=== PATIENT | female | born 1965 | race American Indian/Alaskan Native ===

== ENCOUNTER 2016-08-16 19:47 | Emergency (ER) | payer OTHER ==
[2016-08-16 19:48] VITALS: BP 194/86; PULSE 67; RESP 16; TEMP 98.2; O2SAT 100
--- NOTE | 2016-08-16 20:10 | PD ---
Physical Exam Time Seen by Provider: 20:08 Narrative 51 y/o female here with chest pain for one week. She reports she was Cutting a tree and she felt a "crack." Vital signs reviewed. Seen at triage desk. Awaiting bed placement. Data Data Last Documented VS Vital Signs Date Time Temp Pulse Resp B/P Pulse Ox O2 Delivery O2 Flow Rate FiO2 08/16/16 19:48 98.2 67 16 194/86 100 Room Air [facility] Medical Record Reviewed: Yes Supervised Visit with MACARIO: Joshua Piedra August 16, 2016 20:10
--- NOTE | 2016-08-16 20:21 | PD ---
HPI Chief Complaint: Musculoskeletal Complaint Time Seen by Provider: 20:18 Travel History International Travel<30 days: No Contact w/Intl Traveler<30days: No Traveled to known affect area: No History of Present Illness HPI 51-year-old female presents emergency Department with complaints of right anterior chest wall pain. She states that one week ago she was pulling branches after cutting down a tree. She states that one of the branches had gotten caught and she pulled it vigorously. She felt something crack or pop in her right chest just lateral to the sternum at the level of her breasts. Since then she's had pain. She's taken Tylenol without relief. She states the pain is mild to moderate. Worse with movement and palpation. Some pain with deep breath or cough. No shortness of breath or wheezing. No fever chills. No nausea vomiting. No abdominal pain. No urinary symptoms. PFSH Past Medical History Narrative Medical Guillain-Sifuentes, arthritis Tetanus Vaccination: < 5 Years ?: Not Past Surgical History Narrative Surgical 2, hysterectomy Social History Alcohol Use: No Tobacco Use: No Substance Use: No Allergies-Medications (Allergen,Severity, Reaction): Coded Allergies: Nonsteroidal Anti-Inflammatory Agts (Verified Allergy, Severe, Swelling, ) Reported Meds & Prescriptions Reported Meds & Active Scripts Active Ultram (Tramadol HCl) 50 Mg Tab 50-100 Mg PO Q6H PRN Robaxin (Methocarbamol) 750 Mg Tab 1,500 Mg PO TID 10 Days Review of Systems Except as stated in HPI: all other systems reviewed are Neg Physical Exam Narrative GENERAL: Well-developed, well-nourished in no apparent distress. Nontoxic appearing. HEAD: Normocephalic, atraumatic. EYES: Pupils equal round and reactive. Extraocular motions intact. No scleral icterus. No injection or drainage. ENT: Nose clear. Throat without erythema, tonsillar hypertrophy or exudate. Uvula midline. Airway patent. NECK: Trachea midline. Supple, nontender, moves head freely. No central bony tenderness or spasm. CARDIOVASCULAR: Regular rate and rhythm without murmurs, gallops, or rubs. CHEST: Tender right lateral sternal region at the level of the fourth and fifth ribs without deformity or crepitance. No retractions or use of accessory muscles. RESPIRATORY: Clear to auscultation. Breath sounds equal bilaterally. No wheezes , rales, or rhonchi. GASTROINTESTINAL: Abdomen soft, non-tender, nondistended. No hepato-splenomegaly , or palpable masses. No guarding. EXTREMITIES: No clubbing, cyanosis, or edema. No joint tenderness. BACK: Nontender without deformity. No flank tenderness. NEUROLOGICAL: Awake, alert and oriented x 3 .Cranial nerves grossly intact. Motor and sensory grossly within normal limits. Normal speech. Data Data Last Documented VS Vital Signs Date Time Temp Pulse Resp B/P Pulse Ox O2 Delivery O2 Flow Rate FiO2 08/16/16 19:48 98.2 67 16 194/86 100 Room Air Orders Ribs, Uni (W/Exp Cxr-Min 3vw) (08/16/16 20:16) [facility] Medical Decision Making Medical Screen Exam Complete: Yes Emergency Medical Condition: Yes Medical Record Reviewed: Yes Interpretation(s) Right RIBS: Negative for acute fracture. Differential Diagnosis MDM: High Differential diagnoses: Fracture, sprain, strain, dislocation, contusion, neurovascular injury Narrative Course X-ray is negative for fracture. This is a occult rib fracture Diagnosis Primary Impression: occult rib fracture Patient Instructions: General Instructions Additional Instructions: Rest. Ice for the next 3 days followed by heat . Robaxin and Ultram. Deep breaths every half hour.. Follow-up with a primary care doctor in one week. Return to the ER for emergencies. Med/Other Pt SpecificInfo: Prescription(s) given Scripts Tramadol (Ultram)50 Mg [id number] Mg PO Q6H PRN (PAIN) #30 TAB Prov:Tom Bates MD 08/16/16 Methocarbamol (Robaxin)750 Mg Tab1,500 Mg PO TID 10 Days Prov:Tom Bates MD 08/16/16 Disposition: 01 DISCHARGE HOME Condition: Stable Emigdio Gomes August 16, 2016 20:21
[2016-08-16] MEDS ORDERED: ULTR50TA5 PO (20:22)
[2016-08-16] MEDS ORDERED: ROBA750T PO (20:22)
--- NOTE | 2016-08-16 21:19 | RADRPT ---
EXAM DATE/TIME: 08/16/2016 20:48 [facility] COMPARISON: No previous studies available for comparison. INDICATIONS : Right rib pain after pulling tree branches a week ago. MEDICAL HISTORY : Hypertension. SURGICAL HISTORY : None. ENCOUNTER: Initial ACUITY: 1 week PAIN SCORE: 8/10 LOCATION: Right midline and right chest. FINDINGS: Multiple views of the right ribs were performed. There is no evidence of displaced fracture. No nikos tructive lesions or areas of periosteal thickening are seen. Expiratory view of the chest is negativ e for pneumothorax. The mediastinal structures are midline. There is a levocurvature of the upper t horacic spine and a dextrocurvature of the thoracolumbar region. CONCLUSION: No acute disease. Lowell Obrien MD on August 16, 2016 at 21:16 Board Certified Radiologist. This report was verified electronically.
== END 2016-08-16 21:28 | disposition home or self-care (01) ==
LOC: NEPK 19:47
DX: S22.31XA Fracture of one rib, right side, initial encounter for closed fracture (principal); W22.8XXA Striking against or struck by other objects, initial encounter; Y93.H9 Activity, other involving exterior property and land maintenance, building and construction
CPT/HCPCS: 71101; 99283

== ENCOUNTER 2017-03-26 13:29 | Emergency (ER) | payer OTHER ==
[~2017-03-26] VITALS: Ht 170.2 cm; Wt 75.0 kg
[~2017-03-26 13:29] MED LIST: ROBA750T PO; TRAM50 PO
[2017-03-26 13:36] VITALS: BP 189/94; PULSE 84; RESP 18; TEMP 98.7; O2SAT 98
[2017-03-26] MEDS ORDERED: SODIUM CHLOR 0.9% 1000 ML INJ 1,000 ML IV SCH (13:41)
[2017-03-26 13:42] VITALS: BP 210/96; PULSE 79; RESP 18; O2SAT 97
--- NOTE | 2017-03-26 13:43 | PD ---
HPI Chief Complaint: Neuro Symptoms/ Deficits Time Seen by Provider: 13:40 Travel History International Travel<30 days: No Contact w/Intl Traveler<30days: No Traveled to known affect area: No History of Present Illness HPI 52-year-old female with remote history of Guillian-[place] presents to the emergency department for altered mental status. Patient is reported as nonresponsive and emergently placed in a room. Patient has her eyes open and she has tracking. She is not following commands moving her extremities. Her tells me that she was acting normal up until she read a letter from her youngest son that stated he was running away with his girlfriend. He states at that time she collapsed and she has been like this since. He states this has never happened before. States his has no psychiatric history. The patient is suffering no information at this time.. PFSH Past Medical History Musculoskeletal: Yes (Per barre) ?: Not Social History Alcohol Use: Yes (on occcasion) Tobacco Use: No Substance Use: No Allergies-Medications (Allergen,Severity, Reaction): Coded Allergies: diclofenac (Unverified Allergy, Severe, Swelling, 11/29/16) etodolac (Unverified Allergy, Severe, Swelling, 11/29/16) flurbiprofen (Unverified Allergy, Severe, Swelling, 11/29/16) ibuprofen (Unverified Allergy, Severe, Swelling, 11/29/16) indomethacin (Unverified Allergy, Severe, Swelling, 11/29/16) ketoprofen (Unverified Allergy, Severe, Swelling, 11/29/16) ketorolac (Unverified Allergy, Severe, Swelling, 11/29/16) naproxen (Unverified Allergy, Severe, Swelling, 11/29/16) oxaprozin (Unverified Allergy, Severe, Swelling, 11/29/16) Reported Meds & Prescriptions Reported Meds & Active Scripts Active Ultram (Tramadol HCl) 50 Mg Tab 50-100 Mg PO Q6H PRN Robaxin (Methocarbamol) 750 Mg Tab 1,500 Mg PO TID 10 Days Review of Systems ROS Limitations: Altered Mental Status Physical Exam Exam Limitations: Altered Mental Status Narrative GENERAL: Well-nourished female patient, lying in bed in no acute distress. SKIN: Focused skin assessment warm/dry. HEAD: Atraumatic. Normocephalic. EYES: Pupils equal and round. No scleral icterus. No injection or drainage. EOMI. ENT: No nasal bleeding or discharge. Mucous membranes pink and moist. NECK: Trachea midline. No JVD. CARDIOVASCULAR: Regular rate and rhythm. No murmur appreciated. RESPIRATORY: No accessory muscle use. Clear to auscultation. Breath sounds equal bilaterally. GASTROINTESTINAL: Abdomen soft, non-tender, nondistended. Hepatic and splenic margins not palpable. MUSCULOSKELETAL: No obvious deformities. No clubbing. No cyanosis. No edema. NEUROLOGICAL: Awake and alert and able to assess cranial nerves. Patient is not moving her extremities at this time. She is not speaking. Data Data Last Documented VS Vital Signs Date Time Temp Pulse Resp B/P (MAP) Pulse Ox O2 Delivery O2 Flow Rate FiO2 03/26/17 19:55 91 16 142/88 (106) 99 03/26/17 17:26 Room Air 03/26/17 13:36 98.7 Orders Orders Electrocardiogram (03/26/17 13:41) Complete Blood Count With Diff (03/26/17 13:41) Comprehensive Metabolic Panel (03/26/17 13:41) Prothrombin Time / Inr (Pt) (03/26/17 13:41) Act Partial Throm Time (Ptt) (03/26/17 13:41) Thyroid Stimulating Hormone (03/26/17 13:41) Urinalysis - C+S If Indicated (03/26/17 13:41) Chest, Single Ap (03/26/17 13:41) Ct Brain W/O Iv Contrast(Rout) (03/26/17 13:41) Blood Glucose (03/26/17 13:41) Ecg Monitoring (03/26/17 13:41) Iv Access Insert/Monitor (03/26/17 13:41) Oximetry (03/26/17 13:41) Sodium Chloride 0.9% Flush (Ns Flush) (03/26/17 13:45) Sodium Chlor 0.9% 1000 Ml Inj (Ns 1000 M (03/26/17 13:41) Drug Screen, Random Urine (03/26/17 13:41) Alcohol (Ethanol) (03/26/17 13:41) Tylenol (Acetaminophen) (03/26/17 13:41) Salicylates (Aspirin) (03/26/17 13:41) Psych Screen (03/26/17 14:32) Ed Discharge Order (03/26/17 19:17) Labs Laboratory Tests Test 03/26/17 13:45 White Blood Count 10.9 TH/MM3 Red Blood Count 5.23 MIL/MM3 Hemoglobin 14.9 GM/DL Hematocrit 43.3 % Mean Corpuscular Volume 82.8 FL Mean Corpuscular Hemoglobin 28.5 PG Mean Corpuscular Hemoglobin Concent 34.5 % Red Cell Distribution Width 14.0 % Platelet Count 317 TH/MM3 Mean Platelet Volume 9.3 FL Neutrophils (%) (Auto) 56.1 % Lymphocytes (%) (Auto) 36.9 % Monocytes (%) (Auto) 5.2 % Eosinophils (%) (Auto) 1.1 % Basophils (%) (Auto) 0.7 % Neutrophils # (Auto) 6.1 TH/MM3 Lymphocytes # (Auto) 4.0 TH/MM3 Monocytes # (Auto) 0.6 TH/MM3 Eosinophils # (Auto) 0.1 TH/MM3 Basophils # (Auto) 0.1 TH/MM3 CBC Comment DIFF FINAL Differential Comment Prothrombin Time 10.3 SEC Prothromb Time International Ratio 1.0 RATIO Activated Partial Thromboplast Time 27.9 SEC Urine Color YELLOW Urine Turbidity CLEAR Urine pH 6.0 Urine Specific [place] 1.013 Urine Protein NEG mg/dL Urine Glucose (UA) NEG mg/dL Urine Ketones NEG mg/dL Urine Occult Blood NEG Urine Nitrite NEG Urine Bilirubin NEG Urine Urobilinogen LESS THAN 2.0 MG/DL Urine Leukocyte Esterase NEG Urine RBC 1 /hpf Urine WBC 1 /hpf Urine Squamous Epithelial Cells 1 /hpf Urine Mucus FEW /lpf Microscopic Urinalysis Comment CATH-CULT NOT IND Blood Urea Nitrogen 10 MG/DL Creatinine 0.84 MG/DL Random Glucose 103 MG/DL Total Protein 7.9 GM/DL Albumin 3.5 GM/DL Calcium Level 8.8 MG/DL Alkaline Phosphatase 104 U/L Aspartate Amino Transf (AST/SGOT) 11 U/L Alanine Aminotransferase (ALT/SGPT) 18 U/L Total Bilirubin 0.5 MG/DL Sodium Level 138 MEQ/L Potassium Level 3.6 MEQ/L Chloride Level 104 MEQ/L Carbon Dioxide Level 26.8 MEQ/L Anion Gap 7 MEQ/L Estimat Glomerular Filtration Rate 71 ML/MIN Thyroid Stimulating Hormone 3rd Gen 1.130 uIU/ML Salicylates Level LESS THAN 1.7 MG/DL Urine Opiates Screen NEG Acetaminophen Level LESS THAN 2.0 MCG/ML Urine Barbiturates Screen NEG Urine Amphetamines Screen NEG Urine Benzodiazepines Screen NEG Urine Cocaine Screen NEG Urine Cannabinoids Screen NEG Ethyl Alcohol Level LESS THAN 3 MG/DL MDM Medical Decision Making Medical Screen Exam Complete: Yes Emergency Medical Condition: Yes Medical Record Reviewed: Yes Differential Diagnosis AMS versus electrolyte abnormality versus intracranial etiology versus sepsis versus psychiatric disorder Narrative Course 52-year-old female presents to emergency department for evaluation of altered mental status. Patient is not following commands. She is awake eyes are tracking me as a speak to her. Patient with a loud scream after sternal rub but then goes back to be nonverbal. I discussed the patient my attending physician who has also assessed the patient. Feeling is that this is likely psychiatric in nature, however we'll move forward with ruling out medical etiology. Laboratory Tests Test 03/26/17 13:45 White Blood Count 10.9 TH/MM3 Red Blood Count 5.23 MIL/MM3 Hemoglobin 14.9 GM/DL Hematocrit 43.3 % Mean Corpuscular Volume 82.8 FL Mean Corpuscular Hemoglobin 28.5 PG Mean Corpuscular Hemoglobin Concent 34.5 % Red Cell Distribution Width 14.0 % Platelet Count 317 TH/MM3 Mean Platelet Volume 9.3 FL Neutrophils (%) (Auto) 56.1 % Lymphocytes (%) (Auto) 36.9 % Monocytes (%) (Auto) 5.2 % Eosinophils (%) (Auto) 1.1 % Basophils (%) (Auto) 0.7 % Neutrophils # (Auto) 6.1 TH/MM3 Lymphocytes # (Auto) 4.0 TH/MM3 Monocytes # (Auto) 0.6 TH/MM3 Eosinophils # (Auto) 0.1 TH/MM3 Basophils # (Auto) 0.1 TH/MM3 CBC Comment DIFF FINAL Differential Comment Prothrombin Time 10.3 SEC Prothromb Time International Ratio 1.0 RATIO Activated Partial Thromboplast Time 27.9 SEC Urine Color YELLOW Urine Turbidity CLEAR Urine pH 6.0 Urine Specific [place] 1.013 Urine Protein NEG mg/dL Urine Glucose (UA) NEG mg/dL Urine Ketones NEG mg/dL Urine Occult Blood NEG Urine Nitrite NEG Urine Bilirubin NEG Urine Urobilinogen LESS THAN 2.0 MG/DL Urine Leukocyte Esterase NEG Urine RBC 1 /hpf Urine WBC 1 /hpf Urine Squamous Epithelial Cells 1 /hpf Urine Mucus FEW /lpf Microscopic Urinalysis Comment CATH-CULT NOT IND Blood Urea Nitrogen 10 MG/DL Creatinine 0.84 MG/DL Random Glucose 103 MG/DL Total Protein 7.9 GM/DL Albumin 3.5 GM/DL Calcium Level 8.8 MG/DL Alkaline Phosphatase 104 U/L Aspartate Amino Transf (AST/SGOT) 11 U/L Alanine Aminotransferase (ALT/SGPT) 18 U/L Total Bilirubin 0.5 MG/DL Sodium Level 138 MEQ/L Potassium Level 3.6 MEQ/L Chloride Level 104 MEQ/L Carbon Dioxide Level 26.8 MEQ/L Anion Gap 7 MEQ/L Estimat Glomerular Filtration Rate 71 ML/MIN Thyroid Stimulating Hormone 3rd Gen 1.130 uIU/ML Salicylates Level LESS THAN 1.7 MG/DL Urine Opiates Screen NEG Acetaminophen Level LESS THAN 2.0 MCG/ML Urine Barbiturates Screen NEG Urine Amphetamines Screen NEG Urine Benzodiazepines Screen NEG Urine Cocaine Screen NEG Urine Cannabinoids Screen NEG Ethyl Alcohol Level LESS THAN 3 MG/DL Last Impressions Head CT 03/26/17 1341 Signed Impressions: Service Date/Time: Sunday, March 26, 2017 14:12 - CONCLUSION: No acute intracranial hemorrhage. Unremarkable noncontrast CT scan of brain. Bryan Sandoval MD Chest X-Ray 03/26/17 1341 Signed Impressions: Service Date/Time: Sunday, March 26, 2017 13:59 - CONCLUSION: No acute disease. Bryan Sandoval MD Labs and findings are reviewed. Patient is selectively speaking to one of her sons in the room. She'll not speak when I enter the room. I have contacted АЛЕКСАНДР Cox with psych who agrees to come and evaluate the patient. The patient does speak with Brooke.. Please refer to her note for details regarding this. She recommends discharged home to follow up outpatient with her primary care provider in psychiatry. Diagnosis Primary Impression: Functional neurological symptom disorder with mixed symptoms Referrals: Primary Care Physician Psychiatrist Patient Instructions: General Instructions, Stress (DC) Additional Instructions: FOLLOW UP WITH PRIMARY CARE PROVIDER RETURN TO ED WITH ACUTE WORSENING OF SYMPTOMS Med/Other Pt SpecificInfo: No Change to Meds Disposition: DISCHARGE HOME Condition: Stable Suzanne Eden Mar 26, 2017 13:43
[2017-03-26] MEDS ORDERED: SODIUM CHLORIDE 0.9% FLUSH 10 ML FLUSH IV FLUSH PRN (13:45)
[2017-03-26 13:51] VITALS: RESP 18; O2SAT 98
[2017-03-26 13:56] LABS: AUTOMATED NEUTROPHIL # 6.1 TH/MM3 (1.8-7.7); BASOPHIL # 0.1 TH/MM3 (0-0.2); BASOPHIL % 0.7 % (0.0-2.0); EOSINOPHIL # 0.1 TH/MM3 (0-0.4); EOSINOPHIL % 1.1 % (0.0-4.0); HEMATOCRIT 43.3 % (35.0-46.0); HEMO FLAGS DIFF FINAL; LYMPH % 36.9 % (9.0-44.0); MEAN CELL VOLUME 82.8 FL (80.0-100.0); MEAN CORPUSCULAR HEMOGLOBIN 28.5 PG (27.0-34.0); MEAN CORPUSCULAR HGB CONC 34.5 % (32.0-36.0); MONO % 5.2 % (0.0-8.0); NEUT % 56.1 % (16.0-70.0); PLATELET COUNT 317 TH/MM3 (150-450); RED BLOOD COUNT 5.23 MIL/MM3 (4.00-5.30); WHITE BLOOD COUNT 10.9 TH/MM3 (4.0-11.0)
[2017-03-26 14:02] LABS: BLOOD, URINE NEG (NEG); COMMENT (UR) CATH-CULT NOT IND; CULTURE IF INDICATED CATH CULTURE NOT IND; GLUCOSE,URINE NEG (NEG); KETONE, URINE NEG (NEG); MUCUS URINE FEW /lpf (OCC); NITRITE,URINE NEG (NEG); SQUAMOUS EPITHELIAL CELL URINE 1 /hpf (0-5); URINE COLOR YELLOW (YELLW/STRAW)
[2017-03-26 14:04] LABS: APTT (PATIENT) 27.9 SEC (24.3-30.1); PROTHROMBIN TIME - PATIENT 10.3 SEC (9.8-11.6)
[2017-03-26 14:23] VITALS: BP 178/70; PULSE 89; RESP 18; O2SAT 99
--- NOTE | 2017-03-26 14:23 | RADRPT ---
EXAM DATE/TIME: 03/26/2017 13:59 [facility] COMPARISON: No previous studies available for comparison. INDICATIONS : Altered mental status. Anxiety attack today. MEDICAL HISTORY : Unobtainable SURGICAL HISTORY : Unobtainable ENCOUNTER: Initial ACUITY: 1 day PAIN SCORE: Non-responsive. LOCATION: Bilateral chest FINDINGS: A single view of the chest demonstrates the lungs to be symmetrically aerated without evidence of mas s, infiltrate or effusion. The cardiomediastinal contours are unremarkable. Osseous structures are intact. CONCLUSION: No acute disease. Bryan Sandoval MD on March 26, 2017 at 14:21 Board Certified Radiologist. This report was verified electronically.
[2017-03-26 14:27] LABS: ANION GAP 7 MEQ/L (5-15); AST (GOT) 11 U/L (15-37); BICARBONATE 26.8 MEQ/L (21.0-32.0); BLOOD UREA NITROGEN 10 MG/DL (7-18); CHLORIDE 104 MEQ/L (98-107); GLOMERULAR FILTRATION RATE 71 ML/MIN (>89); POTASSIUM 3.6 MEQ/L (3.5-5.1); SODIUM (NA) 138 MEQ/L (136-145)
[2017-03-26 14:29] LABS: ALT (GPT) 18 U/L (10-53)
--- NOTE | 2017-03-26 14:30 | RADRPT ---
EXAM DATE/TIME: 03/26/2017 14:12 [facility] COMPARISON: No previous studies available for comparison. INDICATIONS : Altered mental status, not communicating. RADIATION DOSE: 28.35 CTDIvol (mGy) MEDICAL HISTORY : Responds to painful stimuli SURGICAL HISTORY : None. ENCOUNTER: Initial ACUITY: 1 day PAIN SCALE: 0/10 LOCATION: cranial TECHNIQUE: Multiple contiguous axial images were obtained of the head. Using automated exposure control and adj ustment of the mA and/or kV according to patient size, radiation dose was kept as low as reasonably a chievable to obtain optimal diagnostic quality images. DICOM format image data is available electro nically for review and comparison. FINDINGS: CEREBRUM: The ventricles are normal for age. No evidence of midline shift, mass lesion, hemorrhage or acute in farction. No extra-axial fluid collections are seen. POSTERIOR FOSSA: The cerebellum and brainstem are intact. The 4th ventricle is midline. The cerebellopontine angle i s unremarkable. EXTRACRANIAL: The visualized portion of the orbits is intact. SKULL: The calvaria is intact. No evidence of skull fracture. CONCLUSION: No acute intracranial hemorrhage. Unremarkable noncontrast CT scan of brain. Bryan Sandoval MD on March 26, 2017 at 14:27 Board Certified Radiologist. This report was verified electronically.
[2017-03-26 14:38] LABS: ALKALINE PHOSPHATASE 104 U/L (45-117); TOTAL BILIRUBIN ADULT 0.5 MG/DL (0.2-1.0)
[2017-03-26 14:40] LABS: ACETAMINOPHEN LESS THAN 2.0 MCG/ML (10.0-30.0); ALCOHOL LESS THAN 3 MG/DL (0-5)
[2017-03-26 17:26] VITALS: BP 154/89; PULSE 78; RESP 18; O2SAT 98
--- NOTE | 2017-03-26 19:24 | PD ---
History of Present Illness Chief Complaint: Neuro Symptoms/ Deficits Time Seen by Provider: 18:30 Travel History International Travel<30 Days: No Contact w/Intl Traveler<30days: No Known affected area: No Legal Status Legal Status: Voluntary History of Present Illness: History of Present Illness HPI Patient is a 52-year-old female with no previous psychiatric history who presents to the ED on a voluntary basis accompanied by her and her son. It is reported by the patient's that this afternoon the patient had a very sudden, abrupt episode of becoming nonresponsive. The patient had a complete workup in ED with no positive findings. His psychiatric screening was ordered to determine if there were any psychiatric related disorders. Electronic medical record is reviewed. No previous contact with [facility] psychiatry. Patient is seen. and son are both interviewed. The reports that over the past several months there has been increase family difficulties surrounding the youngest son who has a girlfriend and has decided to leave the home and move in with his girlfriend. This morning the son came by the house and dropped off his car keys,his telephone as well as leaving a letter in which he stated that he didn't want to have any contact with his family. When the patient found out that that her son had decided to go live with his girlfriend the patient became unresponsive to verbal or physical stimulation. The patient is seen in main ED. She is in bed with her eyes closed. She does engage with freelance writer . She answers questions and is aware that she is in the hospital, she knows that the hospital is [facility]. She is able to recognize her son as well as her . She states that she only has 1 son and that she does not remember that she has another son. At one point she becomes tearful and does acknowledge that she has been feeling very sad. She also reports that she has been crying. There is no evidence of any psychosis, no hallucinations, no paranoia. Mood is depressed. There is no suicidal or homicidal ideation, intent or plan. The patient is requesting to go home and her is also requesting that she be discharged home. [facility] Past Medical History Musculoskeletal: Yes (Per marie) ?: Not Psychiatric History Psychiatric History Hx Psychiatric Treatment: None reported History of Inpatient Treatment: No Guns or firearms in home: No Social History , lives with and son. Currently not working. Hx Alcohol Use: Yes (on occcasion) Hx Tobacco Use: No Hx Substance Use: No Hx of Substance Use Treatment: No Family Psychiatric History None reported Allergies-Medications (Allergen,Severity, Reaction): Coded Allergies: diclofenac (Unverified Allergy, Severe, Swelling, 11/29/16) etodolac (Unverified Allergy, Severe, Swelling, 11/29/16) flurbiprofen (Unverified Allergy, Severe, Swelling, 11/29/16) ibuprofen (Unverified Allergy, Severe, Swelling, 11/29/16) indomethacin (Unverified Allergy, Severe, Swelling, 11/29/16) ketoprofen (Unverified Allergy, Severe, Swelling, 11/29/16) ketorolac (Unverified Allergy, Severe, Swelling, 11/29/16) naproxen (Unverified Allergy, Severe, Swelling, 11/29/16) oxaprozin (Unverified Allergy, Severe, Swelling, 11/29/16) Reported Meds & Prescriptions Reported Meds & Active Scripts Active Ultram (Tramadol HCl) 50 Mg Tab 50-100 Mg PO Q6H PRN Robaxin (Methocarbamol) 750 Mg Tab 1,500 Mg PO TID 10 Days Review of Systems Psychiatric: COMPLAINS OF: Depression Except as stated in HPI: all other systems reviewed are Neg Mental Status Examination Appearance: Appropriate Consciousness: Alert Orientation: Person, Place, Date/Time Motor Activity: Other (in bed) Speech: Hesitant Language: Adequate Fund of Knowledge: Adequate Attention and Concentration: Inadequate Memory: Impaired (patient reports that she does not remember that she has another son.) Mood: Sad Affect: Other (tearful) Thought Process & Associations: Intact Thought Content: Appropriate Hallucination Type: None Delusion Type: None Suicidal Ideation: No Suicidal Plan: No Suicidal Intention: No Homicidal Ideation: No Homicidal Plan: No Homicidal Intention: No Insight: Poor Judgment: Adequate MDM Medical Decision Making Medical Record Reviewed: Yes Assessment/Plan 52-year-old female with no previous psychiatric history who presents to the emergency department accompanied by her family with altered voluntary motor function including nonresponsive to verbal and physical or painful stimulation. This appears to be a reaction to her sadness over the decision that her youngest son has made to move out of her house against her will. I see no other significant mental illness, there is no psychosis, no paranoia, no delusion. There is no suicidal or homicidal ideation. The patient is provided supportive interventions. It is recommended that the patient seek outpatient care including individual psychotherapy to help increase her coping. She is also advised to seek psychiatric care for possible medication. This appears to be an acute episode and as such the patient is cleared from psychiatry for discharge. The family is advised to seek medical care if unable to manage the symptoms at home or if there are any changes in her presentation. Orders Orders Electrocardiogram (03/26/17:41) Complete Blood Count With Diff (03/26/17:41) Comprehensive Metabolic Panel (03/26/17:41) Prothrombin Time / Inr (Pt) (03/26/17:41) Act Partial Throm Time (Ptt) (03/26/17:41) Thyroid Stimulating Hormone (03/26/17:41) Urinalysis - C+S If Indicated (03/26/17:41) Chest, Single Ap (03/26/17:41) Ct Brain W/O Iv Contrast(Rout) (03/26/17:41) Blood Glucose (03/26/17:41) Ecg Monitoring (03/26/17 13:41) Iv Access Insert/Monitor (03/26/17:41) Oximetry (03/26/17:41) Sodium Chloride 0.9% Flush (Ns Flush) (03/26/17 13:45) Sodium Chlor 0.9% 1000 Ml Inj (Ns 1000 M (03/26/17 13:41) Drug Screen, Random Urine (03/26/17 13:41) Alcohol (Ethanol) (03/26/17:41) Tylenol (Acetaminophen) (03/26/17 13:41) Salicylates (Aspirin) (03/26/17 13:41) Psych Screen (03/26/17 14:32) Ed Discharge Order (03/26/17 19:17) Results Vital Signs Date Time Temp Pulse Resp B/P (MAP) Pulse Ox O2 Delivery O2 Flow Rate FiO2 03/26/17 17:26 78 18 154/89 (110) 98 Room Air 03/26/17 14:23 89 18 178/70 (106) 99 Room Air 03/26/17 13:51 18 98 Room Air 03/26/17 13:42 79 18 210/96 (134) 97 Room Air 03/26/17 13:37 70 18 98 Room Air 03/26/17 13:36 98.7 84 18 189/94 (125) 98 Room Air Laboratory Tests Test 03/26/17 13:45 White Blood Count 10.9 Red Blood Count 5.23 Hemoglobin 14.9 Hematocrit 43.3 Mean Corpuscular Volume 82.8 Mean Corpuscular Hemoglobin 28.5 Mean Corpuscular Hemoglobin Concent 34.5 Red Cell Distribution Width 14.0 Platelet Count 317 Mean Platelet Volume 9.3 Neutrophils (%) (Auto) 56.1 Lymphocytes (%) (Auto) 36.9 Monocytes (%) (Auto) 5.2 Eosinophils (%) (Auto) 1.1 Basophils (%) (Auto) 0.7 Neutrophils # (Auto) 6.1 Lymphocytes # (Auto) 4.0 Monocytes # (Auto) 0.6 Eosinophils # (Auto) 0.1 Basophils # (Auto) 0.1 CBC Comment DIFF FINAL Differential Comment Prothrombin Time 10.3 Prothromb Time International Ratio 1.0 Activated Partial Thromboplast Time 27.9 Urine Color YELLOW Urine Turbidity CLEAR Urine pH 6.0 Urine Specific [place] 1.013 Urine Protein NEG Urine Glucose (UA) NEG Urine Ketones NEG Urine Occult Blood NEG Urine Nitrite NEG Urine Bilirubin NEG Urine Urobilinogen LESS THAN 2.0 Urine Leukocyte Esterase NEG Urine RBC 1 Urine WBC 1 Urine Squamous Epithelial Cells 1 Urine Mucus FEW Microscopic Urinalysis Comment CATH-CULT NOT IND Blood Urea Nitrogen 10 Creatinine 0.84 Random Glucose 103 Total Protein 7.9 Albumin 3.5 Calcium Level 8.8 Alkaline Phosphatase 104 Aspartate Amino Transf (AST/SGOT) 11 Alanine Aminotransferase (ALT/SGPT) 18 Total Bilirubin 0.5 Sodium Level 138 Potassium Level 3.6 Chloride Level 104 Carbon Dioxide Level 26.8 Anion Gap 7 Estimat Glomerular Filtration Rate 71 Thyroid Stimulating Hormone 3rd Gen 1.130 Salicylates Level LESS THAN 1.7 Urine Opiates Screen NEG Acetaminophen Level LESS THAN 2.0 Urine Barbiturates Screen NEG Urine Amphetamines Screen NEG Urine Benzodiazepines Screen NEG Urine Cocaine Screen NEG Urine Cannabinoids Screen NEG Ethyl Alcohol Level LESS THAN 3 Diagnosis Primary Impression: Functional Neurological Symptom Disorder Additional Impression: Adjustment reaction Psychiatrically Cleared: Yes Referrals: Primary Care Physician Psychiatrist Patient Instructions: General Instructions, Stress (DC) Additional Instructions: FOLLOW UP WITH PRIMARY CARE PROVIDER RETURN TO ED WITH ACUTE WORSENING OF SYMPTOMS Disposition: 01 DISCHARGE HOME Condition: Stable Problem Qualifiers Additional Impression: Adjustment reaction Qualified Codes: F43.25 - Adjustment disorder with mixed disturbance of emotions and conduct Brooke Alanis [facility] Mar 26, 2017 19:23
[2017-03-26 19:55] VITALS: BP 142/88
--- NOTE | 2017-03-27 17:41 | EKG ---
Date Performed: 03/26/2017 Time Performed: 13:35:31 PTAGE: 52 years EKG: Sinus rhythm MINIMAL ST DEPRESSION BORDERLINE ECG NO PREVIOUS TRACING DOCTOR: Amaury Mandel Interpretating Date/Time 03/27/2017 17:39:27
== END 2017-03-26 19:57 | disposition home or self-care (01) ==
LOC: NEPE 13:29
DX: F43.25 Adjustment disorder with mixed disturbance of emotions and conduct (principal); R29.818 Other symptoms and signs involving the nervous system; G61.0 Guillain-Barre syndrome; Z79.899 Other long term (current) drug therapy; Z88.6 Allergy status to analgesic agent; Z88.8 Allergy status to other drugs, medicaments and biological substances
CPT/HCPCS: 70450; 71010; 80053; 80307; 81001; 84443; 85025; 85610; 85730; 93005; 99285; J7030